=== PATIENT | male | born 1950 | race Caucasian/White ===

== ENCOUNTER 2018-06-23 18:12 | Observation (INO) | payer OTHER, MEDICARE ==
[2018-06-23] MEDS ORDERED: Sodium Chloride 0.9% 10 ML Syringe FLUSH PRN (19:07)
[2018-06-23] MEDS ORDERED: Sodium Chloride 0.9% 2.5 ML Syringe FLUSH PRN (19:07)
--- NOTE | 2018-06-23 19:13 | EDM.PDOC ---
<Jannette Mccarty - Last Filed: 06/23/18 20:51> ED HPI GENERAL MEDICAL PROBLEM - General Chief Complaint: Genitourinary Problem Stated Complaint: NOT ABLE TO STAND AND HAS BLADDER INFECTION Time Seen by Provider: 06/23/18 19:09 Source of Information: Reports: Patient History Limitations: Reports: No Limitations - History of Present Illness INITIAL COMMENTS - FREE TEXT/NARRATIVE: HISTORY AND PHYSICAL: History of present illness: Patient is a 68-year-old male here with complaint of worsening weakness and stating he is "fed up." He states that approximately 6 weeks ago he was diagnosed with bladder cancer. He reports that since then he has gotten progressively more weak, losing weight, and unable to get around his house as well. He states he is seeing Dr. Lisa for this has been going through some tests but states he has had to have a colonoscopy but reports he no too weak to get this done. Patient has not seen an oncologist not on any treatment for his cancer at this time. states that he is not eating as much as usual. Patient states that he is having difficulty completely emptying his bladder. Patient is complaining of pain and arthritis in his knees as well. He denies any chest pain, shortness of breath, vomiting, diarrhea. Patient notes that he is last approximately 50 pounds in the last few weeks Review of systems: As per history of present illness and below otherwise all systems reviewed and negative. Past medical history: As per history of present illness and as reviewed below otherwise noncontributory. Surgical history: As per history of present illness and as reviewed below otherwise noncontributory. Social history: No reported history of drug or alcohol abuse. Family history: As per history of present illness and as reviewed below otherwise noncontributory. Physical exam: General: Patient sitting comfortably, patient does appear emaciated HEENT: Atraumatic, normocephalic, pupils reactive, negative for conjunctival pallor or scleral icterus, mucous membranes moist, throat clear, neck supple, nontender, trachea midline. No meningeal signs. Lungs: Clear to auscultation, breath sounds equal bilaterally, chest nontender. Heart: S1S2, regular, negative for clicks, rubs, or overt murmur. Abdomen: Mild diffuse abdominal tenderness. Soft, nondistended. Negative for masses or hepatosplenomegaly. Negative for costovertebral tenderness. Pelvis: Stable nontender. Genitourinary: Deferred. Rectal: Deferred. Extremities: Atraumatic, negative for cords or calf pain. Neurovascular unremarkable. Neuro: Awake, alert, oriented. Cranial nerves II through XII unremarkable. Cerebellum unremarkable. Motor and sensory unremarkable throughout. Exam nonfocal. Notes: Discussed with Dr. Lisa who recommends this patient be admitted through hospitalist. Diagnostics: CBC, CMP, PT/INR, lactate, chest x-ray, UA, UC Therapeutics: 1 L normal saline IV 1 g cefepime IV Prescriptions: None Impression: UTI, weakness, weight loss Plan: Discussed with Dr. Carola Powell, patient will be admitted to [facility] on IV antibiotics. Definitive disposition and diagnosis as appropriate pending reevaluation and review of above. both knees Pain Score (Numeric/FACES): 9 hypogastric Pain Score (Numeric/FACES): 3 - Related Data Allergies Allergy/AdvReac Type Severity Reaction Status Date / Time No Known Allergies Allergy Verified 06/23/18 18:55 Home Meds: Home Meds Levofloxacin 1 tab PO DAILY 06/23/18 [History] Past Medical History Genitourinary History: Reports: UTI, Recurrent Oncologic (Cancer) History: Reports: Bladder - Past Surgical History Musculoskeletal Surgical History: Reports: Knee Replacement Social & Family History - Family History Family Medical History: Noncontributory - Tobacco Use Smoking Status *Q: Current Every Day Smoker Years of Tobacco use: 40 Packs/Tins Daily: 1 - Recreational Drug Use Recreational Drug Use: No ED ROS GENERAL - Review of Systems Review Of Systems: ROS reveals no pertinent complaints other than HPI. ED EXAM, RENAL/ - Physical Exam Exam: See Below (see dictation) Course - Vital Signs Last Recorded V/S: Last Vital Signs Temp 36.9 C 06/23/18 21:53 Pulse 99 06/23/18 21:53 Resp 19 06/23/18 21:53 BP 114/64 06/23/18 21:53 Pulse Ox 97 06/23/18 21:53 - Orders/Labs/Meds Orders: Active Orders 24 hr Category Date Time Status Chest 1V Frontal [CR] Stat Exams 06/23/18 19:07 Taken CULTURE URINE [RM] Stat Lab 06/23/18 19:50 Received Sodium Chloride 0.9% [Saline Flush] Med 06/23/18 19:07 Active 10 ml FLUSH ASDIRECTED PRN Sodium Chloride 0.9% [Saline Flush] Med 06/23/18 19:07 Active 2.5 ml FLUSH ASDIRECTED PRN Saline Lock Insert [OM.PC] Stat Oth 06/23/18 19:06 Ordered Medication Orders Acetaminophen (Tylenol) 500 mg PO Q4H PRN PRN Reason: Pain (Mild 1-3)/fever Bisacodyl (Dulcolax) 5 mg PO DAILY PRN PRN Reason: Constipation Sodium Chloride (Normal Saline) 1,000 mls @ 150 mls/hr IV ASDIRECTED KAMRON Last Admin: 06/23/18 22:22 Dose: 150 mls/hr Cefepime HCl (Maxipime In D5w 2 Gm/50 Ml) 50 mls @ 100 mls/hr IV Q24H KAMRON Lorazepam (Ativan) 1 mg PO Q4H PRN PRN Reason: Anxiety Ondansetron HCl (Zofran Odt) 4 mg PO Q4H PRN PRN Reason: nausea, able to take PO Oxycodone/Acetaminophen (Percocet 325-5 Mg) 1 tab PO Q4H PRN PRN Reason: Pain Sodium Chloride (Saline Flush) 10 ml FLUSH ASDIRECTED PRN PRN Reason: Keep Vein Open Sodium Chloride (Saline Flush) 2.5 ml FLUSH ASDIRECTED PRN PRN Reason: Keep Vein Open Temazepam (Restoril) 15 mg PO BEDTIME PRN PRN Reason: Sleep Labs: Laboratory Tests 06/23/18 06/23/18 06/23/18 Range/Units 19:20 19:20 19:20 WBC 5.85 (4.0-11.0) K/uL RBC 4.28 L (4.50-5.90) M/uL Hgb 13.2 (13.0-17.0) g/dL Hct 40.8 (38.0-50.0) % MCV 95.3 (80.0-98.0) fL MCH 30.8 (27.0-32.0) pg MCHC 32.4 (31.0-37.0) g/dL RDW Std Deviation 50.2 (28.0-62.0) fl RDW Coeff of Matt 15 (11.0-15.0) % Plt Count 239 (150-400) K/uL MPV 10.40 (7.40-12.00) fL Neut % (Auto) 72.7 (48.0-80.0) % Lymph % (Auto) 15.9 L (16.0-40.0) % [place] % (Auto) 9.7 (0.0-15.0) % Eos % (Auto) 1.5 (0.0-7.0) % Baso % (Auto) 0.2 (0.0-1.5) % Neut # (Auto) 4.3 (1.4-5.7) K/uL Lymph # (Auto) 0.9 (0.6-2.4) K/uL [place] # (Auto) 0.6 (0.0-0.8) K/uL Eos # (Auto) 0.1 (0.0-0.7) K/uL Baso # (Auto) 0.0 (0.0-0.1) K/uL Nucleated RBC % 0.0 /100WBC Nucleated RBCs # 0 K/uL INR 1.12 Lactate 2.5 H (0.20-2.00) mmol/L Sodium (136-148) mmol/L Potassium (3.5-5.1) mmol/L Chloride (98-107) mmol/L Carbon Dioxide (21.0-32.0) mmol/L BUN (7.0-18.0) mg/dL Creatinine (0.8-1.3) mg/dL Est Cr Clr Drug Dosing Estimated GFR (MDRD) ml/min Glucose (74-106) mg/dL Calcium (8.5-10.1) mg/dL Total Bilirubin (0.2-1.0) mg/dL AST (15-37) IU/L ALT (14-63) IU/L Alkaline Phosphatase (46-116) U/L Total Protein (6.4-8.2) g/dL Albumin (3.4-5.0) g/dL Globulin (2.0-3.5) g/dL Albumin/Globulin Ratio (1.3-2.8) Urine Color Urine Appearance Urine pH (5.0-8.0) Ur Specific [place] (1.001-1.035) Urine Protein (NEGATIVE) mg/dL Urine Glucose (UA) (NEGATIVE) mg/dL Urine Ketones (NEGATIVE) mg/dL Urine Occult Blood (NEGATIVE) Urine Nitrite (NEGATIVE) Urine Bilirubin (NEGATIVE) Urine Urobilinogen (<2.0) EU/dL Ur Leukocyte Esterase (NEGATIVE) Urine RBC (0-2/HPF) Urine WBC (0-5/HPF) Ur Epithelial Cells (NONE-FEW) Amorphous Sediment (NEGATIVE) Urine Bacteria (NEGATIVE) 06/23/18 06/23/18 Range/Units 19:20 19:50 WBC (4.0-11.0) K/uL RBC (4.50-5.90) M/uL Hgb (13.0-17.0) g/dL Hct (38.0-50.0) % MCV (80.0-98.0) fL MCH (27.0-32.0) pg MCHC (31.0-37.0) g/dL RDW Std Deviation (28.0-62.0) fl RDW Coeff of Matt (11.0-15.0) % Plt Count (150-400) K/uL MPV (7.40-12.00) fL Neut % (Auto) (48.0-80.0) % Lymph % (Auto) (16.0-40.0) % [place] % (Auto) (0.0-15.0) % Eos % (Auto) (0.0-7.0) % Baso % (Auto) (0.0-1.5) % Neut # (Auto) (1.4-5.7) K/uL Lymph # (Auto) (0.6-2.4) K/uL [place] # (Auto) (0.0-0.8) K/uL Eos # (Auto) (0.0-0.7) K/uL Baso # (Auto) (0.0-0.1) K/uL Nucleated RBC % /100WBC Nucleated RBCs # K/uL INR Lactate (0.20-2.00) mmol/L Sodium 138 (136-148) mmol/L Potassium 4.7 (3.5-5.1) mmol/L Chloride 102 (98-107) mmol/L Carbon Dioxide 29.2 (21.0-32.0) mmol/L BUN 28 H (7.0-18.0) mg/dL Creatinine 1.3 (0.8-1.3) mg/dL Est Cr Clr Drug Dosing TNP Estimated GFR (MDRD) 55.1 ml/min Glucose 198 H (74-106) mg/dL Calcium 9.3 (8.5-10.1) mg/dL Total Bilirubin 0.4 (0.2-1.0) mg/dL AST 18 (15-37) IU/L ALT 23 (14-63) IU/L Alkaline Phosphatase 112 (46-116) U/L Total Protein 6.8 (6.4-8.2) g/dL Albumin 2.4 L (3.4-5.0) g/dL Globulin 4.4 H (2.0-3.5) g/dL Albumin/Globulin Ratio 0.6 L (1.3-2.8) Urine Color YELLOW Urine Appearance SLT CLOUDY Urine pH 6.0 (5.0-8.0) Ur Specific [place] >= 1.030 (1.001-1.035) Urine Protein 100 (NEGATIVE) mg/dL Urine Glucose (UA) NEGATIVE (NEGATIVE) mg/dL Urine Ketones NEGATIVE (NEGATIVE) mg/dL Urine Occult Blood LARGE H (NEGATIVE) Urine Nitrite NEGATIVE (NEGATIVE) Urine Bilirubin NEGATIVE (NEGATIVE) Urine Urobilinogen 0.2 (<2.0) EU/dL Ur Leukocyte Esterase SMALL (NEGATIVE) Urine RBC 8-12 (0-2/HPF) Urine WBC 80-110 (0-5/HPF) Ur Epithelial Cells OCCASIONAL (NONE-FEW) Amorphous Sediment FEW (NEGATIVE) Urine Bacteria 2+ H (NEGATIVE) Meds: Medications Generic Name Dose Route Start Last Admin Trade Name Freq PRN Reason Stop Dose Admin Acetaminophen 500 mg 06/23/18 22:03 Tylenol PO Q4H PRN Pain (Mild 1-3)/fever Bisacodyl 5 mg 06/23/18 22:03 Dulcolax PO DAILY PRN Constipation Sodium Chloride 1,000 mls @ 150 mls/hr 06/23/18 22:15 06/23/18 22:22 Normal Saline IV 150 mls/hr ASDIRECTED KAMRON Administration Cefepime HCl 50 mls @ 100 mls/hr 06/24/18 23:00 Maxipime In D5w 2 Gm/50 Ml IV Q24H KAMRON Lorazepam 1 mg 06/23/18 22:03 Ativan PO Q4H PRN Anxiety Ondansetron HCl 4 mg 06/23/18 22:03 Zofran Odt PO Q4H PRN nausea, able to take PO Oxycodone/Acetaminophen 1 tab 06/23/18 22:03 Percocet 325-5 Mg PO Q4H PRN Pain Sodium Chloride 10 ml 06/23/18 19:07 Saline Flush FLUSH ASDIRECTED PRN Keep Vein Open Sodium Chloride 2.5 ml 06/23/18 19:07 Saline Flush FLUSH ASDIRECTED PRN Keep Vein Open Temazepam 15 mg 06/23/18 22:03 Restoril PO BEDTIME PRN Sleep Discontinued Medications Generic Name Dose Route Start Last Admin Trade Name Freq PRN Reason Stop Dose Admin Sodium Chloride 1,000 mls @ 999 mls/hr 06/23/18 19:51 06/23/18 19:54 Normal Saline IV 06/23/18 20:51 999 mls/hr STAT ONE Administration Cefepime HCl 1 gm/ Premix 50 mls @ 100 mls/hr 06/23/18 20:51 06/23/18 21:39 IV 06/23/18 21:20 100 mls/hr ONETIME ONE Administration Cefepime HCl 1 gm/ Premix 50 mls @ 100 mls/hr 06/24/18 04:00 IV Q8H KAMRON Cefepime HCl 1 gm/ Premix 50 mls @ 100 mls/hr 06/23/18 23:15 06/23/18 23:35 IV 06/23/18 23:44 100 mls/hr ONETIME ONE Administration Departure - Departure Time of Disposition: 20:55 Disposition: Refer to Observation Condition: Good Clinical Impression: UTI (urinary tract infection), Weakness, Weight loss - Discharge Information <Lali Rutledge - Last Filed: 06/24/18 00:24> ED HPI GENERAL MEDICAL PROBLEM - History of Present Illness INITIAL COMMENTS - FREE TEXT/NARRATIVE: Please correct above plan to see that the case was discussed with the hospitalist Dr Campos
[2018-06-23] MEDS ORDERED: Sodium Chloride 0.9% 1,000 ML IV ONE (19:51)
[2018-06-23 19:54] LABS: CHLORIDE,CL 102 mmol/L (98-107); SODIUM,NA 138 mmol/L (136-148)
[2018-06-23] MEDS ORDERED: Cefepime 1 GM in Premix Bag 1 BAG IV ONE ×2 (20:51→23:15)
[2018-06-23] MEDS ORDERED: Ondansetron 4 MG Tab.DIS PO PRN (22:03)
[2018-06-23] MEDS ORDERED: Acetaminophen 325 MG Tab PO PRN (22:03)
[2018-06-23] MEDS ORDERED: Temazepam 15 MG Cap PO PRN (22:03)
[2018-06-23] MEDS ORDERED: LORazepam 1 MG Tab PO PRN (22:03)
[2018-06-23] MEDS ORDERED: Bisacodyl 5 MG Tab PO PRN (22:03)
[2018-06-23] MEDS ORDERED: Acetaminophen/oxyCODONE 325-5 MG Tab PO PRN (22:03)
--- NOTE | 2018-06-23 22:14 | PCM.HP ---
H&P History of Present Illness - General Date of Service: 06/23/18 Admit Problem/Dx: Admission Diagnosis/Problem Admission Diagnosis/Problem UTI (urinary tract infection) due to urinary indwelling catheter Source of Information: Patient, Family, Provider - History of Present Illness Initial Comments - Free Text/Narative: He presented to the ED today stating that he "can't take it anymore". He was diagnosed with bladder cancer a few weeks ago. He has lost 50 lbs in the last two months and feels very weak. He has bilateral knee pain. He states that he can no longer walk. His nephew had to carry him to the car. He states that he is always hungry and eating frequently but nursing staff reports that his mentioned that he is eating very little. He has been evaluated by Dr Lisa. When asked, he could not tell me when his follow up is. I reviewed imaging and see that he has osteoarthritis but on bone scan and CT scanning there is no evidence of metastatic disease. both knees Pain Score (Numeric/FACES): 9 hypogastric Pain Score (Numeric/FACES): 3 - Related Data Allergies/Adverse Reactions: Allergies Allergy/AdvReac Type Severity Reaction Status Date / Time No Known Allergies Allergy Verified 06/23/18 18:55 Home Medications: Home Meds Levofloxacin 1 tab PO DAILY 06/23/18 [History] Nicotine [Nicotine Patch] 21 mg TD DAILY 06/24/18 [History] Past Medical History Cardiovascular History: Denies: CAD, Heart Failure, [place] Respiratory History: Denies: COPD Gastrointestinal History: Denies: Cirrhosis Genitourinary History: Reports: UTI, Recurrent Musculoskeletal History: Reports: Arthritis Neurological History: Denies: Alzheimers Disease, Brain Injury Endocrine/Metabolic History: Denies: Diabetes, Type I, Diabetes, Type II Oncologic (Cancer) History: Reports: Bladder - Past Surgical History Musculoskeletal Surgical History: Reports: Knee Replacement Social & Family History - Family History Family Medical History: Noncontributory - Tobacco Use Smoking Status *Q: Current Every Day Smoker Years of Tobacco use: 40 Packs/Tins Daily: 1 - Alcohol Use Alcohol Use Comment: he denies regular alcohol intake - Recreational Drug Use Recreational Drug Use: No H&P Review of Systems - Review of Systems: Review Of Systems: See Below General: Reports: Malaise Pulmonary: Denies: Shortness of Breath, Cough, Sputum, Hemoptysis Gastrointestinal: Reports: Abdominal Pain, Constipation. Denies: Hematemesis, Hematochezia, Melena, Vomiting Genitourinary: Reports: Dysuria, Frequency, Pain, Other (feeling of incomplete voiding) Exam - Exam Exam: See Below - Vital Signs Vital Signs: Last Vital Signs Temp 99.4 F 06/23/18 21:20 Pulse 116 H 06/23/18 21:20 Resp 19 06/23/18 21:20 BP 114/75 06/23/18 21:20 Pulse Ox 96 06/23/18 21:20 Weight: 54.431 kg - Exam General: Alert, Oriented, Cooperative, Other (marked cachexia) HEENT: EOMI Neck: Supple, Trachea Midline Lungs: Clear to Auscultation, Normal Respiratory Effort Cardiovascular: Regular Rate, Regular Rhythm GI/Abdominal Exam: Soft, Tender (suprapubic tenderness) Rectal (Males) Exam: Deferred Extremities: Other (muscular wasting; thickening of knees) Neurological: Cranial Nerves Intact, Normal Speech Psychiatric: Normal Affect. No: Agitated (diffuse weakness; he is unable to ambulate unassisted) - Patient Data Lab Results Last 24 hrs: Laboratory Results - last 24 hr 06/23/18 06/23/18 06/23/18 Range/Units 19:20 19:20 19:20 WBC 5.85 (4.0-11.0) K/uL RBC 4.28 L (4.50-5.90) M/uL Hgb 13.2 (13.0-17.0) g/dL Hct 40.8 (38.0-50.0) % MCV 95.3 (80.0-98.0) fL MCH 30.8 (27.0-32.0) pg MCHC 32.4 (31.0-37.0) g/dL RDW Std Deviation 50.2 (28.0-62.0) fl RDW Coeff of Matt 15 (11.0-15.0) % Plt Count 239 (150-400) K/uL MPV 10.40 (7.40-12.00) fL Neut % (Auto) 72.7 (48.0-80.0) % Lymph % (Auto) 15.9 L (16.0-40.0) % [place] % (Auto) 9.7 (0.0-15.0) % Eos % (Auto) 1.5 (0.0-7.0) % Baso % (Auto) 0.2 (0.0-1.5) % Neut # (Auto) 4.3 (1.4-5.7) K/uL Lymph # (Auto) 0.9 (0.6-2.4) K/uL [place] # (Auto) 0.6 (0.0-0.8) K/uL Eos # (Auto) 0.1 (0.0-0.7) K/uL Baso # (Auto) 0.0 (0.0-0.1) K/uL Nucleated RBC % 0.0 /100WBC Nucleated RBCs # 0 K/uL INR 1.12 Lactate 2.5 H (0.20-2.00) mmol/L Sodium (136-148) mmol/L Potassium (3.5-5.1) mmol/L Chloride (98-107) mmol/L Carbon Dioxide (21.0-32.0) mmol/L BUN (7.0-18.0) mg/dL Creatinine (0.8-1.3) mg/dL Est Cr Clr Drug Dosing Estimated GFR (MDRD) ml/min Glucose (74-106) mg/dL Calcium (8.5-10.1) mg/dL Total Bilirubin (0.2-1.0) mg/dL AST (15-37) IU/L ALT (14-63) IU/L Alkaline Phosphatase (46-116) U/L Total Protein (6.4-8.2) g/dL Albumin (3.4-5.0) g/dL Globulin (2.0-3.5) g/dL Albumin/Globulin Ratio (1.3-2.8) Urine Color Urine Appearance Urine pH (5.0-8.0) Ur Specific [place] (1.001-1.035) Urine Protein (NEGATIVE) mg/dL Urine Glucose (UA) (NEGATIVE) mg/dL Urine Ketones (NEGATIVE) mg/dL Urine Occult Blood (NEGATIVE) Urine Nitrite (NEGATIVE) Urine Bilirubin (NEGATIVE) Urine Urobilinogen (<2.0) EU/dL Ur Leukocyte Esterase (NEGATIVE) Urine RBC (0-2/HPF) Urine WBC (0-5/HPF) Ur Epithelial Cells (NONE-FEW) Amorphous Sediment (NEGATIVE) Urine Bacteria (NEGATIVE) 06/23/18 06/23/18 Range/Units 19:20 19:50 WBC (4.0-11.0) K/uL RBC (4.50-5.90) M/uL Hgb (13.0-17.0) g/dL Hct (38.0-50.0) % MCV (80.0-98.0) fL MCH (27.0-32.0) pg MCHC (31.0-37.0) g/dL RDW Std Deviation (28.0-62.0) fl RDW Coeff of Matt (11.0-15.0) % Plt Count (150-400) K/uL MPV (7.40-12.00) fL Neut % (Auto) (48.0-80.0) % Lymph % (Auto) (16.0-40.0) % [place] % (Auto) (0.0-15.0) % Eos % (Auto) (0.0-7.0) % Baso % (Auto) (0.0-1.5) % Neut # (Auto) (1.4-5.7) K/uL Lymph # (Auto) (0.6-2.4) K/uL [place] # (Auto) (0.0-0.8) K/uL Eos # (Auto) (0.0-0.7) K/uL Baso # (Auto) (0.0-0.1) K/uL Nucleated RBC % /100WBC Nucleated RBCs # K/uL INR Lactate (0.20-2.00) mmol/L Sodium 138 (136-148) mmol/L Potassium 4.7 (3.5-5.1) mmol/L Chloride 102 (98-107) mmol/L Carbon Dioxide 29.2 (21.0-32.0) mmol/L BUN 28 H (7.0-18.0) mg/dL Creatinine 1.3 (0.8-1.3) mg/dL Est Cr Clr Drug Dosing TNP Estimated GFR (MDRD) 55.1 ml/min Glucose 198 H (74-106) mg/dL Calcium 9.3 (8.5-10.1) mg/dL Total Bilirubin 0.4 (0.2-1.0) mg/dL AST 18 (15-37) IU/L ALT 23 (14-63) IU/L Alkaline Phosphatase 112 (46-116) U/L Total Protein 6.8 (6.4-8.2) g/dL Albumin 2.4 L (3.4-5.0) g/dL Globulin 4.4 H (2.0-3.5) g/dL Albumin/Globulin Ratio 0.6 L (1.3-2.8) Urine Color YELLOW Urine Appearance SLT CLOUDY Urine pH 6.0 (5.0-8.0) Ur Specific [place] >= 1.030 (1.001-1.035) Urine Protein 100 (NEGATIVE) mg/dL Urine Glucose (UA) NEGATIVE (NEGATIVE) mg/dL Urine Ketones NEGATIVE (NEGATIVE) mg/dL Urine Occult Blood LARGE H (NEGATIVE) Urine Nitrite NEGATIVE (NEGATIVE) Urine Bilirubin NEGATIVE (NEGATIVE) Urine Urobilinogen 0.2 (<2.0) EU/dL Ur Leukocyte Esterase SMALL (NEGATIVE) Urine RBC 8-12 (0-2/HPF) Urine WBC 80-110 (0-5/HPF) Ur Epithelial Cells OCCASIONAL (NONE-FEW) Amorphous Sediment FEW (NEGATIVE) Urine Bacteria 2+ H (NEGATIVE) Result Diagrams: 06/24/18 02:05 06/24/18 02:05 - Problem List (1) Bladder cancer SNOMED Code(s): 226672784 ICD Code: C67.9 - MALIGNANT NEOPLASM OF BLADDER, UNSPECIFIED Status: Acute Current Visit: Yes (2) Cachexia SNOMED Code(s): 237532198 ICD Code: R64 - CACHEXIA Status: Acute Current Visit: Yes (3) UTI (urinary tract infection) SNOMED Code(s): 57803430 ICD Code: N39.0 - URINARY TRACT INFECTION, SITE NOT SPECIFIED Status: Acute Current Visit: Yes Problem List Initiated/Reviewed/Updated: Yes Orders Last 24hrs: Active Orders 24 hr Category Date Time Status Admission Status [Patient Status] [ADT] Stat ADT 06/23/18 20:51 Active Oxygen Therapy [RC] PRN Care 06/23/18 22:03 Ordered VTE/DVT Education [RC] PER UNIT ROUTINE Care 06/23/18 22:03 Ordered Vital Signs [RC] Q4H Care 06/23/18 22:03 Ordered Regular Diet [DIET] Diet 06/23/18 Breakfast Ordered Chest 1V Frontal [CR] Stat Exams 06/23/18 19:07 Taken CBC WITH AUTO DIFF [HEME] AM Lab 06/24/18 05:11 Ordered CBC WITH AUTO DIFF [HEME] AM Lab 06/25/18 05:11 Ordered CBC WITH AUTO DIFF [HEME] AM Lab 06/26/18 05:11 Ordered COMPREHENSIVE METABOLIC PN,CMP [CHEM] AM Lab 06/24/18 05:11 Ordered COMPREHENSIVE METABOLIC PN,CMP [CHEM] AM Lab 06/25/18 05:11 Ordered COMPREHENSIVE METABOLIC PN,CMP [CHEM] AM Lab 06/26/18 05:11 Ordered CULTURE URINE [RM] Stat Lab 06/23/18 19:50 Received MAGNESIUM [CHEM] AM Lab 06/24/18 05:11 Ordered MAGNESIUM [CHEM] AM Lab 06/25/18 05:11 Ordered MAGNESIUM [CHEM] AM Lab 06/26/18 05:11 Ordered Acetaminophen [Tylenol] Med 06/23/18 22:03 Ordered 500 mg PO Q4H PRN Acetaminophen/oxyCODONE [Percocet 325-5 MG] Med 06/23/18 22:03 Ordered 1 tab PO Q4H PRN Bisacodyl [Dulcolax] Med 06/23/18 22:03 Ordered 5 mg PO DAILY PRN Cefepime [Maxipime in D5W 1 GM/50 ML] 1 gm Med 06/24/18 04:00 Ordered Premix Bag 1 bag IV Q8H LORazepam [Ativan] Med 06/23/18 22:03 Ordered 1 mg PO Q4H PRN Ondansetron [Zofran ODT] Med 06/23/18 22:03 Ordered 4 mg PO Q4H PRN Sodium Chloride 0.9% @ 150 MLS/HR (1,000ml) Med 06/23/18 22:15 Ordered Sodium Chloride 0.9% [Normal Saline] 1,000 ml IV ASDIRECTED Sodium Chloride 0.9% [Saline Flush] Med 06/23/18 19:07 Active 10 ml FLUSH ASDIRECTED PRN Sodium Chloride 0.9% [Saline Flush] Med 06/23/18 19:07 Active 2.5 ml FLUSH ASDIRECTED PRN Temazepam [Restoril] Med 06/23/18 22:03 Ordered 15 mg PO BEDTIME PRN Saline Lock Insert [OM.PC] Stat Oth 06/23/18 19:06 Ordered Resuscitation Status Routine Resus Stat 06/23/18 22:03 Ordered Medication Orders Sodium Chloride (Saline Flush) 10 ml FLUSH ASDIRECTED PRN PRN Reason: Keep Vein Open Sodium Chloride (Saline Flush) 2.5 ml FLUSH ASDIRECTED PRN PRN Reason: Keep Vein Open Assessment/Plan Comment:: admit see orders will consult Dr Lisa
[2018-06-23] MEDS: Sodium Chloride 0.9% 1,000 ML IV SCH (22:22)
[2018-06-24 02:46] LABS: CHLORIDE,CL 106 mmol/L (98-107); SODIUM,NA 136 mmol/L (136-148)
[2018-06-24] MEDS ORDERED: Cefepime 1 GM in Premix Bag 1 BAG IV SCH (04:00)
[2018-06-24] MEDS: Sodium Chloride 0.9% 1,000 ML IV SCH ×2 (05:40→10:07)
[2018-06-24] MEDS ORDERED: Magnesium Sulfate/Water 2 GM in Premix Bag 1 BAG IV ONE (09:14)
[2018-06-24] MEDS ORDERED: Nicotine 21 MG/24 Hr Patch TRDERM SCH (10:00)
--- NOTE | 2018-06-24 12:47 | CR ---
EXAM DATE: 06/23/18 PATIENT'S AGE: 68 Patient: PREM GUPTA Facility: [place], [place] Site . Site : [id number] Study: XRay Chest [id number]/20/2018 7:52:52 PM Ordering Physician: Doctor Melendrez Final Report: INDICATION: Shortness of breath. COMPARISON: CT chest May 27, 2018. TECHNIQUE: Portable AP chest. FINDINGS: Large left-sided pleural effusion. Normal size cardiac silhouette. Diffuse pulmonary emphysema. No interval change. IMPRESSION: 1. Moderate left-sided pleural effusion; stable in appearance. 2. Pulmonary emphysema. 3. No interval change. Dictated by Mark Mendieta MD @ Jun 23 2018 7:53PM (Electronic Signature) Report Signed by Proxy. DEE
--- NOTE | 2018-06-24 13:47 | PCM.DCSUM1 ---
Discharge Summary - Hospital Course HPI Initial Comments: He was admitted with bladder cancer, UTI and cachexia. Brief History: HE was admitted with bladder cancer, cachexia and a UTI Diagnosis: Stroke: No - Discharge Data Discharge Date: 06/24/18 Discharge Disposition: DC/Tfer to Acute Hospital 02 Condition: Poor - Discharge Diagnosis/Problem(s) (1) Bladder cancer SNOMED Code(s): 620542041 ICD Code: C67.9 - MALIGNANT NEOPLASM OF BLADDER, UNSPECIFIED Status: Acute Current Visit: Yes (2) Cachexia SNOMED Code(s): 634209391 ICD Code: R64 - CACHEXIA Status: Acute Current Visit: Yes (3) UTI (urinary tract infection) SNOMED Code(s): 65244496 ICD Code: N39.0 - URINARY TRACT INFECTION, SITE NOT SPECIFIED Status: Acute Current Visit: Yes - Patient Summary/Data Consults: Consultations 06/23/18 22:16 Consult to Physician [CONS] Urgent Hospital Course: urine culture was obtained. I spoke with Dr Lisa about this case. He felt hesitant to operate on him at our facility in his current state of cachexia. He was given IVF and magnesium sulfate I recommended transfer to a higher level of care. I spoke with Dr López, hospitalist, [facility] who kindly agreed to accept the patient in transfer. I also spoke with Dr Guille Cortez, urology who agrees to consult on the case. Patient will be transferred to [facility] for a higher level of care. Olegario Campos MD - Discharge Plan Home Medications: Home Meds Levofloxacin 1 tab PO DAILY 06/23/18 [History] Nicotine [Nicotine Patch] 21 mg TD DAILY 06/24/18 [History] Forms: ED Department Discharge Referrals: [facility] [Outside] Elijah Chaparro MD [Ordering Only Provider] - PCP,None [Primary Care Provider] - - Patient Data Vitals - Most Recent: Last Vital Signs Temp 98.1 F 06/24/18 12:00 Pulse 89 06/24/18 12:00 Resp 20 06/24/18 12:00 BP 125/71 06/24/18 12:00 Pulse Ox 94 L 06/24/18 12:00 Weight - Most Recent: 54.431 kg I&O - Last 24 hours: Intake & Output 06/23/18 06/24/18 06/24/18 22:59 06:59 14:59 Intake Total 50 3759 390 Output Total 0 Balance 50 2295 390 Lab Results - Last 24 hrs: Laboratory Results - last 24 hr 06/23/18 06/23/18 06/23/18 Range/Units 19:20 19:20 19:20 WBC 5.85 (4.0-11.0) K/uL RBC 4.28 L (4.50-5.90) M/uL Hgb 13.2 (13.0-17.0) g/dL Hct 40.8 (38.0-50.0) % MCV 95.3 (80.0-98.0) fL MCH 30.8 (27.0-32.0) pg MCHC 32.4 (31.0-37.0) g/dL RDW Std Deviation 50.2 (28.0-62.0) fl RDW Coeff of Matt 15 (11.0-15.0) % Plt Count 239 (150-400) K/uL MPV 10.40 (7.40-12.00) fL Neut % (Auto) 72.7 (48.0-80.0) % Lymph % (Auto) 15.9 L (16.0-40.0) % Gila % (Auto) 9.7 (0.0-15.0) % Eos % (Auto) 1.5 (0.0-7.0) % Baso % (Auto) 0.2 (0.0-1.5) % Neut # (Auto) 4.3 (1.4-5.7) K/uL Lymph # (Auto) 0.9 (0.6-2.4) K/uL Gila # (Auto) 0.6 (0.0-0.8) K/uL Eos # (Auto) 0.1 (0.0-0.7) K/uL Baso # (Auto) 0.0 (0.0-0.1) K/uL Nucleated RBC % 0.0 /100WBC Nucleated RBCs # 0 K/uL INR 1.12 Lactate 2.5 H (0.20-2.00) mmol/L Sodium (136-148) mmol/L Potassium (3.5-5.1) mmol/L Chloride (98-107) mmol/L Carbon Dioxide (21.0-32.0) mmol/L BUN (7.0-18.0) mg/dL Creatinine (0.8-1.3) mg/dL Est Cr Clr Drug Dosing Estimated GFR (MDRD) ml/min Glucose (74-106) mg/dL Calcium (8.5-10.1) mg/dL Magnesium (1.8-2.4) mg/dL Total Bilirubin (0.2-1.0) mg/dL AST (15-37) IU/L ALT (14-63) IU/L Alkaline Phosphatase (46-116) U/L Total Protein (6.4-8.2) g/dL Albumin (3.4-5.0) g/dL Globulin (2.0-3.5) g/dL Albumin/Globulin Ratio (1.3-2.8) Urine Color Urine Appearance Urine pH (5.0-8.0) Ur Specific Cressey (1.001-1.035) Urine Protein (NEGATIVE) mg/dL Urine Glucose (UA) (NEGATIVE) mg/dL Urine Ketones (NEGATIVE) mg/dL Urine Occult Blood (NEGATIVE) Urine Nitrite (NEGATIVE) Urine Bilirubin (NEGATIVE) Urine Urobilinogen (<2.0) EU/dL Ur Leukocyte Esterase (NEGATIVE) Urine RBC (0-2/HPF) Urine WBC (0-5/HPF) Ur Epithelial Cells (NONE-FEW) Amorphous Sediment (NEGATIVE) Urine Bacteria (NEGATIVE) 06/23/18 06/23/18 06/24/18 Range/Units 19:20 19:50 02:05 WBC 4.98 (4.0-11.0) K/uL RBC 3.42 L (4.50-5.90) M/uL Hgb 10.5 L (13.0-17.0) g/dL Hct 32.6 L (38.0-50.0) % MCV 95.3 (80.0-98.0) fL MCH 30.7 (27.0-32.0) pg MCHC 32.2 (31.0-37.0) g/dL RDW Std Deviation 49.7 (28.0-62.0) fl RDW Coeff of Matt 14 (11.0-15.0) % Plt Count 196 (150-400) K/uL MPV 10.30 (7.40-12.00) fL Neut % (Auto) 60.5 (48.0-80.0) % Lymph % (Auto) 26.7 (16.0-40.0) % Gila % (Auto) 10.4 (0.0-15.0) % Eos % (Auto) 2.2 (0.0-7.0) % Baso % (Auto) 0.2 (0.0-1.5) % Neut # (Auto) 3.0 (1.4-5.7) K/uL Lymph # (Auto) 1.3 (0.6-2.4) K/uL Gila # (Auto) 0.5 (0.0-0.8) K/uL Eos # (Auto) 0.1 (0.0-0.7) K/uL Baso # (Auto) 0.0 (0.0-0.1) K/uL Nucleated RBC % 0.0 /100WBC Nucleated RBCs # 0 K/uL INR Lactate (0.20-2.00) mmol/L Sodium 138 (136-148) mmol/L Potassium 4.7 (3.5-5.1) mmol/L Chloride 102 (98-107) mmol/L Carbon Dioxide 29.2 (21.0-32.0) mmol/L BUN 28 H (7.0-18.0) mg/dL Creatinine 1.3 (0.8-1.3) mg/dL Est Cr Clr Drug Dosing TNP Estimated GFR (MDRD) 55.1 ml/min Glucose 198 H (74-106) mg/dL Calcium 9.3 (8.5-10.1) mg/dL Magnesium (1.8-2.4) mg/dL Total Bilirubin 0.4 (0.2-1.0) mg/dL AST 18 (15-37) IU/L ALT 23 (14-63) IU/L Alkaline Phosphatase 112 (46-116) U/L Total Protein 6.8 (6.4-8.2) g/dL Albumin 2.4 L (3.4-5.0) g/dL Globulin 4.4 H (2.0-3.5) g/dL Albumin/Globulin Ratio 0.6 L (1.3-2.8) Urine Color YELLOW Urine Appearance SLT CLOUDY Urine pH 6.0 (5.0-8.0) Ur Specific Cressey >= 1.030 (1.001-1.035) Urine Protein 100 (NEGATIVE) mg/dL Urine Glucose (UA) NEGATIVE (NEGATIVE) mg/dL Urine Ketones NEGATIVE (NEGATIVE) mg/dL Urine Occult Blood LARGE H (NEGATIVE) Urine Nitrite NEGATIVE (NEGATIVE) Urine Bilirubin NEGATIVE (NEGATIVE) Urine Urobilinogen 0.2 (<2.0) EU/dL Ur Leukocyte Esterase SMALL (NEGATIVE) Urine RBC 8-12 (0-2/HPF) Urine WBC 80-110 (0-5/HPF) Ur Epithelial Cells OCCASIONAL (NONE-FEW) Amorphous Sediment FEW (NEGATIVE) Urine Bacteria 2+ H (NEGATIVE) 06/24/18 06/24/18 Range/Units 02:05 02:05 WBC (4.0-11.0) K/uL RBC (4.50-5.90) M/uL Hgb (13.0-17.0) g/dL Hct (38.0-50.0) % MCV (80.0-98.0) fL MCH (27.0-32.0) pg MCHC (31.0-37.0) g/dL RDW Std Deviation (28.0-62.0) fl RDW Coeff of Matt (11.0-15.0) % Plt Count (150-400) K/uL MPV (7.40-12.00) fL Neut % (Auto) (48.0-80.0) % Lymph % (Auto) (16.0-40.0) % Gila % (Auto) (0.0-15.0) % Eos % (Auto) (0.0-7.0) % Baso % (Auto) (0.0-1.5) % Neut # (Auto) (1.4-5.7) K/uL Lymph # (Auto) (0.6-2.4) K/uL Gila # (Auto) (0.0-0.8) K/uL Eos # (Auto) (0.0-0.7) K/uL Baso # (Auto) (0.0-0.1) K/uL Nucleated RBC % /100WBC Nucleated RBCs # K/uL INR Lactate 1.5 (0.20-2.00) mmol/L Sodium 136 (136-148) mmol/L Potassium 3.8 (3.5-5.1) mmol/L Chloride 106 (98-107) mmol/L Carbon Dioxide 25.8 (21.0-32.0) mmol/L BUN 30 H (7.0-18.0) mg/dL Creatinine 1.1 (0.8-1.3) mg/dL Est Cr Clr Drug Dosing 50.17 Estimated GFR (MDRD) > 60.0 ml/min Glucose 193 H (74-106) mg/dL Calcium 8.0 L (8.5-10.1) mg/dL Magnesium 1.6 L (1.8-2.4) mg/dL Total Bilirubin 0.2 (0.2-1.0) mg/dL AST 13 L (15-37) IU/L ALT 19 (14-63) IU/L Alkaline Phosphatase 117 H (46-116) U/L Total Protein 5.1 L (6.4-8.2) g/dL Albumin 1.7 L (3.4-5.0) g/dL Globulin 3.4 (2.0-3.5) g/dL Albumin/Globulin Ratio 0.5 L (1.3-2.8) Urine Color Urine Appearance Urine pH (5.0-8.0) Ur Specific Cressey (1.001-1.035) Urine Protein (NEGATIVE) mg/dL Urine Glucose (UA) (NEGATIVE) mg/dL Urine Ketones (NEGATIVE) mg/dL Urine Occult Blood (NEGATIVE) Urine Nitrite (NEGATIVE) Urine Bilirubin (NEGATIVE) Urine Urobilinogen (<2.0) EU/dL Ur Leukocyte Esterase (NEGATIVE) Urine RBC (0-2/HPF) Urine WBC (0-5/HPF) Ur Epithelial Cells (NONE-FEW) Amorphous Sediment (NEGATIVE) Urine Bacteria (NEGATIVE) Med Orders - Current: Current Medications Acetaminophen (Tylenol) 500 mg PO Q4H PRN PRN Reason: Pain (Mild 1-3)/fever Bisacodyl (Dulcolax) 5 mg PO DAILY PRN PRN Reason: Constipation Sodium Chloride (Normal Saline) 1,000 mls @ 75 mls/hr IV ASDIRECTED [facility] Last Admin: 06/24/18 10:07 Dose: 75 mls/hr Cefepime HCl (Maxipime In D5w 2 Gm/50 Ml) 50 mls @ 100 mls/hr IV Q24H [facility] Lorazepam (Ativan) 1 mg PO Q4H PRN PRN Reason: Anxiety Nicotine (Habitrol) 21 mg TRDERM Q24H [facility] Last Admin: 06/24/18 10:04 Dose: 21 mg Ondansetron HCl (Zofran Odt) 4 mg PO Q4H PRN PRN Reason: nausea, able to take PO Oxycodone/Acetaminophen (Percocet 325-5 Mg) 1 tab PO Q4H PRN PRN Reason: Pain Sodium Chloride (Saline Flush) 10 ml FLUSH ASDIRECTED PRN PRN Reason: Keep Vein Open Sodium Chloride (Saline Flush) 2.5 ml FLUSH ASDIRECTED PRN PRN Reason: Keep Vein Open Temazepam (Restoril) 15 mg PO BEDTIME PRN PRN Reason: Sleep Discontinued Medications Sodium Chloride (Normal Saline) 1,000 mls @ 999 mls/hr IV STAT ONE Stop: 06/23/18 20:51 Last Admin: 06/23/18 19:54 Dose: 999 mls/hr Cefepime HCl 1 gm/ Premix 50 mls @ 100 mls/hr IV ONETIME ONE Stop: 06/23/18 21:20 Last Admin: 06/23/18 21:39 Dose: 100 mls/hr Cefepime HCl 1 gm/ Premix 50 mls @ 100 mls/hr IV Q8H [facility] Cefepime HCl 1 gm/ Premix 50 mls @ 100 mls/hr IV ONETIME ONE Stop: 06/23/18 23:44 Last Admin: 06/23/18 23:35 Dose: 100 mls/hr Magnesium Sulfate 2 gm/ Premix 50 mls @ 50 mls/hr IV ONETIME ONE Stop: 06/24/18 10:13 Last Admin: 06/24/18 10:04 Dose: 50 mls/hr
[2018-06-24] MEDS ORDERED: Cefepime 50 ML IV SCH (23:00)
== END 2018-06-24 16:40 ==
LOC: MW.ED 18:12 → MW.ICU 20:51
PROVIDERS: ADMIT Family Medicine; ATTEND Family Medicine
DX: C67.9 Malignant neoplasm of bladder, unspecified (principal); R64 Cachexia; N39.0 Urinary tract infection, site not specified; M19.90 Unspecified osteoarthritis, unspecified site; J90 Pleural effusion, not elsewhere classified; J43.9 Emphysema, unspecified; F17.210 Nicotine dependence, cigarettes, uncomplicated; Z79.2 Long term (current) use of antibiotics; Z79.899 Other long term (current) drug therapy
CPT/HCPCS: 36415; 71045; 80053; 81001; 83605; 83735; 85025; 85610; 87086; 96361; 96365; 99285; A9270; J0692; J3475; J7040